=== PATIENT | female | born 1985 | race Caucasian/White ===

== ENCOUNTER → 2019-12-24 16:49 | Outpatient (BNVA) | payer MEDICAID, SELFPAY | PROVIDERS: Visit Provider Nurse Practitioner Family | DX: F41.9 Anxiety disorder, unspecified (principal); F32.9 Major depressive disorder, single episode, unspecified; E10.9 Type 1 diabetes mellitus without complications; E55.9 Vitamin D deficiency, unspecified; E78.2 Mixed hyperlipidemia | CPT/HCPCS: 80053; 80061; 81001; 82306; 83036; 84443; 85025 ==

== ENCOUNTER → 2020-05-08 11:07 | Outpatient (BNVA) | payer MEDICAID, SELFPAY | PROVIDERS: Visit Provider Nurse Practitioner Family | DX: E10.9 Type 1 diabetes mellitus without complications (principal); F41.9 Anxiety disorder, unspecified; F32.9 Major depressive disorder, single episode, unspecified; E55.9 Vitamin D deficiency, unspecified; Z96.41 Presence of insulin pump (external) (internal) | CPT/HCPCS: 80053; 81003; 83036; 85025 ==

== ENCOUNTER 2020-06-10 15:51 | Outpatient (CLI) | payer MEDICAID, SELFPAY ==
[2020-06-10 16:53] LABS: Glucose 233 mg/dL (65-115)
[2020-06-11 10:43] LABS: C-Peptide <0.10 ng/mL (0.80-3.85)
== END 2020-06-10 15:52 | disposition home or self-care (01) ==
PROVIDERS: Visit Provider Internal Medicine
DX: E10.319 Type 1 diabetes mellitus with unspecified diabetic retinopathy without macular edema (principal); E10.40 Type 1 diabetes mellitus with diabetic neuropathy, unspecified; E16.0 Drug-induced hypoglycemia without coma; T38.3X5A Adverse effect of insulin and oral hypoglycemic [antidiabetic] drugs, initial encounter
CPT/HCPCS: 36415; 82947; 84681; 99204

== ENCOUNTER → 2020-10-22 16:29 | Outpatient (BNVA) | payer MEDICAID, SELFPAY | PROVIDERS: PCP Nurse Practitioner Family; Visit Provider Nurse Practitioner Family | DX: E10.9 Type 1 diabetes mellitus without complications (principal); R53.83 Other fatigue; E55.9 Vitamin D deficiency, unspecified; E78.2 Mixed hyperlipidemia | CPT/HCPCS: 80053; 80061; 81003; 82306; 83036; 84439; 84443; 85007; 85027 ==

== ENCOUNTER → 2021-03-24 11:00 | Outpatient (BNVA) | payer MEDICAID, SELFPAY | PROVIDERS: PCP Nurse Practitioner Family; Visit Provider Nurse Practitioner Family | DX: K04.7 Periapical abscess without sinus (principal); E10.9 Type 1 diabetes mellitus without complications; B37.9 Candidiasis, unspecified | CPT/HCPCS: 80053; 83036; 84443; 85025 ==

== ENCOUNTER → 2021-04-29 11:54 | Outpatient (BNVA) | payer MEDICAID, SELFPAY | PROVIDERS: PCP Nurse Practitioner Family; Visit Provider Nurse Practitioner Family | DX: R79.89 Other specified abnormal findings of blood chemistry (principal); E16.0 Drug-induced hypoglycemia without coma; T38.3X5A Adverse effect of insulin and oral hypoglycemic [antidiabetic] drugs, initial encounter | CPT/HCPCS: 84439; 84443; 84481; 86376 ==

== ENCOUNTER → 2021-05-22 08:11 | Outpatient (BNVA) | payer MEDICAID, SELFPAY | PROVIDERS: PCP Nurse Practitioner Family; Visit Provider Internal Medicine | DX: E10.40 Type 1 diabetes mellitus with diabetic neuropathy, unspecified (principal); E10.319 Type 1 diabetes mellitus with unspecified diabetic retinopathy without macular edema; E16.0 Drug-induced hypoglycemia without coma; T38.3X5A Adverse effect of insulin and oral hypoglycemic [antidiabetic] drugs, initial encounter; R53.83 Other fatigue; E03.8 Other specified hypothyroidism; Z79.4 Long term (current) use of insulin; F17.200 Nicotine dependence, unspecified, uncomplicated | CPT/HCPCS: 99214 ==

== ENCOUNTER → 2021-06-05 08:46 | Outpatient (BNVA) | payer BC, MEDICAID, SELFPAY | PROVIDERS: PCP Nurse Practitioner Family; Visit Provider Internal Medicine | DX: E10.40 Type 1 diabetes mellitus with diabetic neuropathy, unspecified (principal); E10.319 Type 1 diabetes mellitus with unspecified diabetic retinopathy without macular edema; E03.8 Other specified hypothyroidism; E16.0 Drug-induced hypoglycemia without coma; T38.3X5A Adverse effect of insulin and oral hypoglycemic [antidiabetic] drugs, initial encounter; R53.83 Other fatigue; F17.200 Nicotine dependence, unspecified, uncomplicated | CPT/HCPCS: 99214 ==

== ENCOUNTER → 2021-07-29 10:37 | Outpatient (BNVA) | payer BC, MEDICAID, SELFPAY | PROVIDERS: PCP Nurse Practitioner Family; Visit Provider Internal Medicine | DX: E10.40 Type 1 diabetes mellitus with diabetic neuropathy, unspecified (principal); E10.319 Type 1 diabetes mellitus with unspecified diabetic retinopathy without macular edema; E16.0 Drug-induced hypoglycemia without coma; T38.3X5A Adverse effect of insulin and oral hypoglycemic [antidiabetic] drugs, initial encounter; R53.83 Other fatigue; E03.8 Other specified hypothyroidism; E55.9 Vitamin D deficiency, unspecified; E78.2 Mixed hyperlipidemia | CPT/HCPCS: 80061; 83036; 84439; 84443; 99215 ==

== ENCOUNTER → 2021-09-08 11:03 | Outpatient (BNVA) | payer BC, MEDICAID, SELFPAY | PROVIDERS: PCP Nurse Practitioner Family; Visit Provider Internal Medicine | DX: E10.40 Type 1 diabetes mellitus with diabetic neuropathy, unspecified (principal); E10.319 Type 1 diabetes mellitus with unspecified diabetic retinopathy without macular edema; E16.0 Drug-induced hypoglycemia without coma; T38.3X5A Adverse effect of insulin and oral hypoglycemic [antidiabetic] drugs, initial encounter; R53.83 Other fatigue; E03.8 Other specified hypothyroidism; E55.9 Vitamin D deficiency, unspecified; E78.2 Mixed hyperlipidemia; F17.200 Nicotine dependence, unspecified, uncomplicated; Z79.4 Long term (current) use of insulin | CPT/HCPCS: 99214 ==

== ENCOUNTER → 2021-11-19 14:01 | Outpatient (BNVA) | payer BC, MEDICAID, SELFPAY | PROVIDERS: PCP Nurse Practitioner Family; Visit Provider Internal Medicine | DX: E10.40 Type 1 diabetes mellitus with diabetic neuropathy, unspecified (principal); E10.319 Type 1 diabetes mellitus with unspecified diabetic retinopathy without macular edema; E10.649 Type 1 diabetes mellitus with hypoglycemia without coma; E03.8 Other specified hypothyroidism; R53.83 Other fatigue; E16.0 Drug-induced hypoglycemia without coma; T38.3X5A Adverse effect of insulin and oral hypoglycemic [antidiabetic] drugs, initial encounter; E78.2 Mixed hyperlipidemia; E55.9 Vitamin D deficiency, unspecified; F17.200 Nicotine dependence, unspecified, uncomplicated; Z79.4 Long term (current) use of insulin | CPT/HCPCS: 99214 ==

== ENCOUNTER → 2022-01-05 07:54 | Outpatient (BNVA) | payer BC, MEDICAID, SELFPAY | PROVIDERS: PCP Nurse Practitioner Family; Visit Provider Internal Medicine | DX: E10.40 Type 1 diabetes mellitus with diabetic neuropathy, unspecified (principal); E10.319 Type 1 diabetes mellitus with unspecified diabetic retinopathy without macular edema; E10.649 Type 1 diabetes mellitus with hypoglycemia without coma; E16.0 Drug-induced hypoglycemia without coma; T38.3X5A Adverse effect of insulin and oral hypoglycemic [antidiabetic] drugs, initial encounter; R53.83 Other fatigue; E03.8 Other specified hypothyroidism; E55.9 Vitamin D deficiency, unspecified; E78.2 Mixed hyperlipidemia; F17.200 Nicotine dependence, unspecified, uncomplicated; Z79.4 Long term (current) use of insulin | CPT/HCPCS: 99214 ==

== ENCOUNTER → 2022-01-21 14:29 | Outpatient (BNVA) | payer BC, MEDICAID, SELFPAY | PROVIDERS: PCP Nurse Practitioner Family; Visit Provider Internal Medicine | DX: E03.8 Other specified hypothyroidism (principal); E11.319 Type 2 diabetes mellitus with unspecified diabetic retinopathy without macular edema; E16.0 Drug-induced hypoglycemia without coma; E55.9 Vitamin D deficiency, unspecified; E78.2 Mixed hyperlipidemia; R53.83 Other fatigue; T38.3X5A Adverse effect of insulin and oral hypoglycemic [antidiabetic] drugs, initial encounter | CPT/HCPCS: 80053; 80061; 82044; 83036; 84439; 84443; 99214 ==

== ENCOUNTER → 2022-03-01 08:19 | Outpatient (BNVA) | payer BC, MEDICAID, SELFPAY | PROVIDERS: PCP Nurse Practitioner Family; Visit Provider Nurse Practitioner Family | DX: R10.11 Right upper quadrant pain (principal) | CPT/HCPCS: 80053; 85025 ==

== ENCOUNTER 2022-03-30 08:19 | Outpatient (CLI) | payer BC, MEDICAID, SELFPAY ==
--- NOTE | 2022-03-30 08:30 | US_ITS ---
WS: [id number] RIGHT UPPER QUADRANT ULTRASOUND HISTORY: R10.11 - Right upper quadrant pain COMPARISON: None available. Liver: 15.9 cm in length. Normal size liver. No bile duct dilatation or mass. Portal Vein: Normal hepatopetal flow with monophasic waveform. Gallbladder: Normally distended gallbladder with no stones or wall thickening. CBD: 0.4 cm Pancreas: Normal size and echogenicity. Right kidney: 11.1 cm in length. Normal size and echogenicity. No hydronephrosis or mass. Aorta and IVC: Unremarkable abdominal aorta and IVC. No ascites. US/US gall bladder [id number] IMPRESSION: Normal RIGHT upper quadrant ultrasound.
== END 2022-03-30 08:20 | disposition home or self-care (01) ==
LOC: RAD 08:20
PROVIDERS: PCP Nurse Practitioner Family; Visit Provider Nurse Practitioner Family
DX: R10.11 Right upper quadrant pain (principal)
CPT/HCPCS: 76705

== ENCOUNTER → 2023-02-10 10:33 | Outpatient (BNVA) | payer BC, MEDICAID, SELFPAY | PROVIDERS: PCP Nurse Practitioner Family; Visit Provider Internal Medicine | DX: E10.40 Type 1 diabetes mellitus with diabetic neuropathy, unspecified (principal); E11.319 Type 2 diabetes mellitus with unspecified diabetic retinopathy without macular edema; E16.0 Drug-induced hypoglycemia without coma; T38.3X5A Adverse effect of insulin and oral hypoglycemic [antidiabetic] drugs, initial encounter; R53.83 Other fatigue; E03.8 Other specified hypothyroidism; E55.9 Vitamin D deficiency, unspecified; E78.2 Mixed hyperlipidemia; R21 Rash and other nonspecific skin eruption | CPT/HCPCS: 36415; 80053; 80061; 82044; 83036; 84439; 84443 ==

== ENCOUNTER 2023-03-29 14:49 | Outpatient (CLI) | payer BC, MEDICAID, SELFPAY ==
[2023-03-29 16:22] LABS: Basophils # 0.1 10^3/uL (0.0-0.1); Basophils % 1.3 %; Eosinophils # 0.4 10^3/uL (0.0-0.8); Eosinophils % 6.2 %; Hematocrit 40.7 % (36-47); Lymphocytes # 2.3 10^3/uL (0.8-4.8); Lymphocytes % 33.4 %; Mean Corpuscular HGB Conc 33.7 g/dL (30-55); Mean Corpuscular Hemoglobin 31.1 pg (27-33); Mean Corpuscular Volume 92.5 fl (85-98); Mean Platelet Volume 10.8 fL (7.4-10.4); Monocytes # 0.5 10^3/uL (0.2-0.9); Monocytes % 7.4 %; Neutrophils # 3.49 10^3/uL (1.8-7.7); Neutrophils % 51.4 %; Nucleated Red Blood Cells % 0 %; Platelet Count 298 10^3/cmm (157-399); White Blood Count 6.79 10^3/uL (3.29-11.43)
[2023-03-29 17:05] LABS: Hepatitis A Antibody IgM Non-Reactive (Nonreactive); Hepatitis B Core AB, Total Non-Reactive (Nonreactive); Hepatitis B Surface AB 254.8 (11.5-1000); Hepatitis B Surface Antigen Non-Reactive (Nonreactive); Hepatitis C Virus Antibody Non-Reactive (Nonreactive)
[2023-03-29 20:38] LABS: Blood Urea Nitrogen 11 mg/dL (6-20); Calcium 8.5 mg/dL (8.5-10.5); Carbon Dioxide 24 mmol/L (22-29); Chloride 102 mmol/L (98-107); Glomerular Filtration Rate 93.6 mL/min (90-130); Glucose 231 mg/dL (65-115); Osmolality Calculated 295 mOsm/kg (285-295); Sodium 139 mmol/L (136-145)
[2023-03-29 22:27] LABS: HIV 1 & 2 Antibody Non-Reactive (Non-Reactiv); HIV 1 & 2 Antigen Non-Reactive (Non-Reactiv)
[2023-03-31 12:58] LABS: Quantiferon Mitogen 6.92 IU/mL; Quantiferon Nil 0.01 IU/mL; Quantiferon TB Gold NEGATIVE (NEGATIVE)
== END 2023-03-29 14:50 | disposition home or self-care (01) ==
LOC: LAB 14:55
PROVIDERS: PCP Nurse Practitioner Family; Visit Provider Dermatology
DX: L40.0 Psoriasis vulgaris (principal)
CPT/HCPCS: 36415; 80048; 85025; 86480; 86705; 86706; 86709; 86803; 87340; 87806

== ENCOUNTER → 2023-04-14 11:17 | Outpatient (BNVA) | payer BC, MEDICAID, SELFPAY | PROVIDERS: PCP Nurse Practitioner Family; Visit Provider Nurse Practitioner Family | DX: S89.91XA Unspecified injury of right lower leg, initial encounter (principal); X58.XXXA Exposure to other specified factors, initial encounter | CPT/HCPCS: 73562 ==

== ENCOUNTER 2023-05-24 15:12 | Outpatient (CLI) | payer BC, MEDICAID, SELFPAY ==
--- NOTE | 2023-05-24 15:15 | MR_ITS ---
WS: [id number] MRI RIGHT KNEE NONCONTRAST TECHNIQUE: Axial PD, coronal PD fat sat, coronal PD, sagittal PD, and sagittal PD fat-sat images parula stephanied. CLINICAL INFORMATION: S86.911A - Strain of unspecified muscle(s) and tendon(s) ... COMPARISON: None. FINDINGS: Distal quadriceps and patella tendons are intact. Mild chondromalacia patella. Medial and lateral pat ellar retinaculum are intact. High-grade complete tear of the ACL. No normal fibers visualized. This has a chronic appearance. Increased signal abnormality in the PCL with T1 hyperintensity likely due t o mucoid degeneration. Diffuse thickening of the PCL. Moderate tricompartmental arthritis advanced for a patient this age. Small suprapatellar effusion. Ev idence of prior postoperative changes partial lateral meniscectomy. Chronic intrasubstance signal abn ormality involving the medial meniscus. Medial and lateral collateral ligaments appear intact. Poplit eus appears intact. Subchondral cystic changes involving the tibial spines. IMPRESSION: 1. Chronic appearing high-grade tear of the ACL. No normal fibers visualized. Evidence of prior pres umed ACL repair. 2. Diffuse thickening with mucoid degeneration involving the PCL which appears intact. 3. Evidence of prior partial lateral meniscectomy. Medial meniscus appears intact with chronic thinn ing. 4. Moderate tricompartmental arthritis advanced for patient this age. 5. Grade II chondromalacia patella. 6. Medial and lateral collateral ligaments appear intact. 7. Evidence of prior proximal MCL tear with Dax-Stieda Outbridge grading: grade III: partial-thickness cartilage loss with focal ulceration
== END 2023-05-24 15:13 | disposition home or self-care (01) ==
LOC: RAD 15:12
PROVIDERS: PCP Nurse Practitioner Family; Visit Provider Nurse Practitioner
DX: S86.911A Strain of unspecified muscle(s) and tendon(s) at lower leg level, right leg, initial encounter (principal); S83.203A Other tear of unspecified meniscus, current injury, right knee, initial encounter; X58.XXXA Exposure to other specified factors, initial encounter; M94.261 Chondromalacia, right knee; M13.861 Other specified arthritis, right knee; Z98.890 Other specified postprocedural states
CPT/HCPCS: 73721

== ENCOUNTER → 2024-03-15 15:14 | Outpatient (BNVA) | payer BC, MEDICAID, SELFPAY | PROVIDERS: PCP Nurse Practitioner Family; Visit Provider Physician Assistant | DX: M23.91 Unspecified internal derangement of right knee (principal); M17.11 Unilateral primary osteoarthritis, right knee; S83.511A Sprain of anterior cruciate ligament of right knee, initial encounter; X58.XXXA Exposure to other specified factors, initial encounter | CPT/HCPCS: 73560; 73565 ==

== ENCOUNTER → 2024-04-10 15:21 | Outpatient (BNVA) | payer BC, MEDICAID, SELFPAY | PROVIDERS: PCP Nurse Practitioner Family; Visit Provider Nurse Practitioner Family | DX: N92.0 Excessive and frequent menstruation with regular cycle (principal); E78.2 Mixed hyperlipidemia; E10.9 Type 1 diabetes mellitus without complications; E55.9 Vitamin D deficiency, unspecified | CPT/HCPCS: 80053; 80061; 81003; 81025; 82306; 83036; 84443; 85025; 87400 ==

== ENCOUNTER → 2024-05-02 16:31 | Outpatient (BNVA) | payer BC, MEDICAID, SELFPAY | PROVIDERS: PCP Nurse Practitioner Family; Visit Provider Nurse Practitioner Women's Health | DX: Z12.4 Encounter for screening for malignant neoplasm of cervix (principal) | CPT/HCPCS: 87624 ==

== ENCOUNTER 2024-05-04 15:02 | Outpatient (CLI) | payer BC, MEDICAID, SELFPAY ==
--- NOTE | 2024-05-04 15:15 | US_ITS ---
WS: [id number] Pelvic ultrasound, 05/04/2024 Clinical Data: N92.1 - Excessive and frequent menstruation with irregula... Comparison: None. Findings: The uterus measures 8.2 cm x 5.7 cm x 5.0 cm. The uterus shows mixed echotexture The endometrium is 0.7 cm. No intrauterine or abnormal intrauterine mass is seen. The left ovary was not imaged The right ovary measures 4.5 cm x 2.6 cm x 2.9 cm with no cysts or masses. There is no fluid in the cul-de-sac. US/US pelv w/transvag [id number] Impression: Negative pelvic ultrasound with notation left ovary was not imaged.
== END 2024-05-04 15:03 | disposition home or self-care (01) ==
LOC: RAD 15:03
PROVIDERS: PCP Nurse Practitioner Family; Visit Provider Nurse Practitioner Family
DX: N92.1 Excessive and frequent menstruation with irregular cycle (principal)
CPT/HCPCS: 76830; 76856

== ENCOUNTER → 2024-07-05 09:26 | Outpatient (BNVA) | payer BC, MEDICAID, SELFPAY | PROVIDERS: PCP Nurse Practitioner Family; Visit Provider Obstetrics & Gynecology | DX: R87.629 Unspecified abnormal cytological findings in specimens from vagina (principal) | CPT/HCPCS: 81025 ==

== ENCOUNTER → 2024-07-19 13:57 | Outpatient (BNVA) | payer BC, MEDICAID, SELFPAY | PROVIDERS: PCP Nurse Practitioner Family; Visit Provider Internal Medicine | DX: E10.40 Type 1 diabetes mellitus with diabetic neuropathy, unspecified (principal); E16.0 Drug-induced hypoglycemia without coma; T38.3X5A Adverse effect of insulin and oral hypoglycemic [antidiabetic] drugs, initial encounter; E03.8 Other specified hypothyroidism; E55.9 Vitamin D deficiency, unspecified; E78.2 Mixed hyperlipidemia; E10.9 Type 1 diabetes mellitus without complications; R53.83 Other fatigue; R21 Rash and other nonspecific skin eruption; X58.XXXA Exposure to other specified factors, initial encounter | CPT/HCPCS: 36415; 80053; 80061; 82044; 82306; 83036; 84439; 84443 ==

== ENCOUNTER → 2024-07-26 13:19 | Outpatient (BNVA) | payer BC, MEDICAID, SELFPAY | PROVIDERS: PCP Nurse Practitioner Family; Visit Provider Obstetrics & Gynecology | DX: R87.629 Unspecified abnormal cytological findings in specimens from vagina (principal) | CPT/HCPCS: 81025; 88305 ==

== ENCOUNTER → 2024-08-31 10:30 | Outpatient (BNVA) | payer BC, MEDICAID, SELFPAY | PROVIDERS: PCP Nurse Practitioner Family; Visit Provider Obstetrics & Gynecology | DX: R87.613 High grade squamous intraepithelial lesion on cytologic smear of cervix (HGSIL) (principal) | CPT/HCPCS: 88305; 88342 ==

== ENCOUNTER 2024-10-16 08:27 | Day surgery (SDC) | payer BC, MEDICAID, SELFPAY ==
[2024-10-16] VITALS (10 sets, daily range): BP systolic 87–116; BP diastolic 58–75; PULSE 79–105; RESP 8–25; TEMP 36.1–36.5; O2SAT 92–100; BMI 30.9
--- NOTE | 2024-10-16 06:03 | W.PM.OPSFHP ---
Same Day Surgery H&P Indication for Procedure/HPI DATE OF PROCEDURE: October 16, 2024 CHIEF COMPLAINT/INDICATIONFOR SURGICAL PROCEDURE: cervical dysplasia PREOP DIAGNOSIS: cervical dysplasia PLANNED PROCEDURE: Operation Date: 10/16/24 10:05 Proposed Procedures p Loop Electrosurgical Excision Procedure 06145(Not Applicable) - West Nix MD Medications/Allergies* Home Medications ?Medication ?Instructions ?Recorded ?Confirmed ?Type cetirizine 10 mg tablet 10 mg PO DAILY 10/15/24 10/15/24 History ergocalciferol (vitamin D2) 1,250 1,250 mcg PO .WEEKLY 10/15/24 10/15/24 History mcg (50,000 unit) capsule insulin lispro 100 unit/mL 36 unit SUBCUT DIRECTED 10/15/24 10/15/24 History subcutaneous solution (Humalog U-100 Insulin) paroxetine HCl 30 mg tablet 30 mg PO DAILY 10/15/24 10/15/24 History Allergies/Adverse Reactions Allergy/AdvReac Type Severity Reaction Status Date / Time diphenhydramine (From Allergy unknown Verified 10/15/24 10:36 Benadryl) Pertinent History/Comorbid Conditions* Medical History (Updated 06/26/24 @ 18:36 by Douglas Lizarraga MD) No pertinent past medical history NegDX: Htn,DVT/PE PCP: Gross Hypothyroid Menometrorrhagia Nausea Right knee pain Arthritis of knee ACL tear Right knee injury Dermatitis Back pain Fatigue Environmental and seasonal allergies Insulin pump status Mixed hyperlipidemia Type 1 diabetes Anxiety and depression Vitamin D deficiency Surgical History (Updated 05/02/24 @ 15:00 by Anayeli Dumont APN, WHTYRELL) History of laparoscopy (~2008) left oophorectomy for ovarian cyst-- benign; performed by [facility] H/O bilateral salpingectomy (~2016) [place] Hx of right knee surgery History of ankle surgery Status post delivery 2009 2016-- has salpingectomy at same time Family History (Updated 12/24/19 @ 13:23 by Bushra Valdez LPN) Diabetes CAD (coronary artery disease) Hyperlipidemia Thyroid disease Social History Smoking and tobacco/nicotine status: current every day tobacco/nicotine user Alcohol intake: never Substance/Drug Use: former Pertinent Exam Findings alert, oriented x 3, clear to auscultation bilaterally and regular rate & rhythm Recommendations Surgery/Procedure today Coding Level of Care Code Acute Code for Chg Fwd
[2024-10-16 08:57] LABS: OR HCG Qualitative Urine Negative (Negative)
[2024-10-16 09:02] LABS: Glucose Point of Care 370 mg/dL (70-110)
[2024-10-16] MEDS: sodium chloride 0.9% 1,000 ML 30 ML IV (09:02)
[2024-10-16 09:08] LABS: Glucose Point of Care 339 mg/dL (70-110)
--- NOTE | 2024-10-16 09:21 | ANES.PREANE2 ---
Pre-Anesthetic Assessment Height/Weight: Height 1.63 m Weight 81.647 kg Temp Pulse Resp BP Pulse Ox O2 Del Method 97 F L 79 18 114/68 97 Room Air 10/16/24 08:48 10/16/24 08:48 10/16/24 08:48 10/16/24 08:48 10/16/24 08:48 10/16/24 08:48 Preop Diagnosis: cervical dysplasia Operation Date: 10/16/24 10:05 Proposed Procedures p Loop Electrosurgical Excision Procedure 53841(Not Applicable) - West Nix MD Familial anesthetic complications: None Was Beta Caroline taken within 24 hours: N/A Was Clonidine taken within 24 hours: N/A Last intake: Intake Last Liquid Date 10/15/24 Last Liquid Time 23:25 Last Solid Date 10/15/24 Last Solid Time 22:30 Social Tobacco and No alcohol Exam alert, oriented x 3, clear to auscultation bilaterally and regular rate & rhythm Airway Mallampati: Class II Dentition: other (poor dentition, multiple missing teeth, decayed) Metabolic Diabetes Mellitus and Thyroid Disease Anesthetic Plan ASA status: 3 Anesthesia: General Risk of > 500 ml blood loss (7ml/kg in children): No Medications/Allergies Home Medications ?Medication ?Instructions ?Recorded ?Confirmed ?Last Taken ?Type subcutaneous insulin pump #1 ea 05/08/20 09/24/24 Unknown Rx glucagon 0.5 mg/0.1 mL 1 mg (0.2 mL) SUBCUT Q20M PRN 10/27/20 10/15/24 Unknown Rx subcutaneous syringe hypoglycemia #0.2 mL infusion set for insulin pump #5 ea 08/31/21 09/24/24 Unknown Rx blood-glucose meter,continuous #1 ea 05/03/22 09/24/24 Unknown Rx insulin pump cart,cont inf,BT #30 ea 01/31/23 09/24/24 Unknown Rx (Omnipod Dash Pods (Gen 4) subcutaneous cartridge) Right Knee ACL Brace #1 ea 03/15/24 09/24/24 Unknown Rx blood-glucose transmitter (Dexcom #1 ea 07/03/24 09/24/24 Unknown Rx G6 Transmitter device) blood-glucose sensor (Dexcom G6 #9 ea 08/14/24 09/24/24 Unknown Rx Sensor device) insulin pump cart,automated,BT #90 ea 08/14/24 09/24/24 Unknown Rx levothyroxine 25 mcg tablet 25 mcg PO DAILY 1 month #36 tabs 08/14/24 10/16/24 10/16/24 06:00 Rx cetirizine 10 mg tablet 10 mg PO DAILY 10/15/24 10/15/24 Unknown History ergocalciferol (vitamin D2) 1,250 1,250 mcg PO .WEEKLY 10/15/24 10/15/24 10/13/24 History mcg (50,000 unit) capsule insulin lispro 100 unit/mL 36 unit SUBCUT DIRECTED 10/15/24 10/15/24 10/15/24 History subcutaneous solution (Humalog U-100 Insulin) paroxetine HCl 30 mg tablet 30 mg PO DAILY 10/15/24 10/15/24 10/15/24 History Allergies Allergy/AdvReac Type Severity Reaction Status Date / Time diphenhydramine (From Allergy unknown Verified 10/16/24 08:46 Benadryl) Current Medications Generic Name Dose Route Start Last Admin Trade Name Freq PRN Reason Stop Dose Admin Sodium Chloride 1,000 mls @ 30 mls/hr 10/16/24 08:45 10/16/24 09:02 Sodium Chloride 0.9% IV 10/17/24 08:44 30 mls/hr .Q24H RADHA Administration PFSH Anesthesia Medical History No pertinent past medical history NegDX: Htn,DVT/PE PCP: Gross Hypothyroid Menometrorrhagia Nausea Right knee pain Arthritis of knee ACL tear Right knee injury Dermatitis Back pain Fatigue Environmental and seasonal allergies Insulin pump status Mixed hyperlipidemia Type 1 diabetes Anxiety and depression Vitamin D deficiency Surgical History History of laparoscopy (~2008) left oophorectomy for ovarian cyst-- benign; performed by [facility] H/O bilateral salpingectomy (~2016) [facility] of right knee surgery History of ankle surgery Status post delivery 2009 2016-- has salpingectomy at same time Family History Other CAD (coronary artery disease) Diabetes Hyperlipidemia Thyroid disease Social History Smoking and tobacco/nicotine status: current every day tobacco/nicotine user Alcohol intake: never Substance/Drug Use: former Female Reproductive History Date of last menstrual period: 10/14/24 Data Anesthesia Cardiac Studies: No Data to Display
[2024-10-16 09:52] LABS: Glucose Point of Care 326 mg/dL (70-110)
--- NOTE | 2024-10-16 10:45 | PM.OP ---
Operative Report Date of procedure: October 16, 2024 Pre-op diagnosis: cervical TREMAYNE II Post-op diagnosis: same Procedure done: Electrosurgical loop excision of the cervix Implants: none Specimens removed/disposition: cervical tissue Surgeon: West Nix MD Anesthesia: MAC Estimated blood loss (mL): 5 Complications: none Condition: stable Disposition: PACU Brief History: 38 y.o. with colposcopically-directed cervical biopsy showing cervical TREMAYNE II Procedure: Informed consent signed The patient was taken to the operating room and placed supine on the table. MAC anesthesia was induced. The patient was placed in dorsolithotomy position. The patient was prepped and draped in the usual sterile fashion. A bivalve speculum was placed in the vagina. The anterior lip of the cervix was grasped with a single toothed tenaculum. The cervix was then infiltrated at the cervicovaginal junction with 20 U of vasopressin to decrease bleeding. Electrosurgical loop excision of the cervix was done to a depth of approximately 5 mm. Excellent hemostasis was noted. All instruments were then removed. The patient was placed supine, awakened, and taken to the recovery room. Postoperative condition: stable EBL: less than 5 cc Complications: none Sponge and instrument counts were correct x two
--- NOTE | 2024-10-16 11:04 | W.PM.OPSUD ---
Surgery/Procedure H&P Update DATE OF PROCEDURE: October 16, 2024 DATE H&P PERFORMED: 09/24/24 H&P UPDATE INFORMATION: I have reviewed H&P completed within last 30 days, I have examined patient prior to procedure and No changes to prior documentation PREOP DIAGNOSIS: cervical dysplasia PLANNED PROCEDURE: Operation Date: 10/16/24 10:05 Proposed Procedures p Loop Electrosurgical Excision Procedure [id number](Not Applicable) - West Nix MD
[2024-10-16] MEDS: vasopressin 20 unit/mL INJ INJECTION (11:49)
[2024-10-16 12:25] LABS: Glucose Point of Care 242 mg/dL (70-110)
--- NOTE | 2024-10-16 13:15 | ANE.PACU2 ---
Inpatient post-anesthesia follow up: Airway intact: Yes Vital signs: Temperature 97.2 F Pulse Rate 85 Respiratory Rate 16 Blood Pressure 98/58 Pulse Oximetry 96 Oxygen Delivery Me thod Room Air Oxygen Flow Rate Fraction of Inspir ed Oxygen Hydration adequate: Yes Nausea and vomiting: Yes Pain level: 1 Mental status: Baseline
== END 2024-10-16 13:14 | disposition home or self-care (01) ==
PROVIDERS: PCP Nurse Practitioner Family; Visit Provider Obstetrics & Gynecology
PROC: 0UBC7ZZ Excision of Cervix, Via Natural or Artificial Opening (ICD-10-PCS; CPT 57522; principal; 2024-10-16 09:55)
DX: N87.1 Moderate cervical dysplasia (principal); E03.9 Hypothyroidism, unspecified; E10.9 Type 1 diabetes mellitus without complications; E78.2 Mixed hyperlipidemia; Z79.899 Other long term (current) drug therapy; Z79.4 Long term (current) use of insulin; Z88.8 Allergy status to other drugs, medicaments and biological substances; F17.200 Nicotine dependence, unspecified, uncomplicated
CPT/HCPCS: 57522; 36416; 81025; 82962; 88307; A4216; J0131; J1100; J1171; J1885; J2250; J2405; J2704; J3010; J3490; J7030; J9999

== ENCOUNTER → 2024-10-22 12:52 | Outpatient (BNVA) | payer BC, MEDICAID, SELFPAY | PROVIDERS: PCP Nurse Practitioner Family; Visit Provider Internal Medicine | DX: R21 Rash and other nonspecific skin eruption (principal); E78.2 Mixed hyperlipidemia; E55.9 Vitamin D deficiency, unspecified; E03.8 Other specified hypothyroidism; R53.83 Other fatigue; E16.0 Drug-induced hypoglycemia without coma; T38.3X5A Adverse effect of insulin and oral hypoglycemic [antidiabetic] drugs, initial encounter; E10.40 Type 1 diabetes mellitus with diabetic neuropathy, unspecified; E11.319 Type 2 diabetes mellitus with unspecified diabetic retinopathy without macular edema | CPT/HCPCS: 36415; 80053; 80061; 82044; 83036; 84439; 84443 ==

== ENCOUNTER → 2024-12-05 11:02 | Outpatient (BNVA) | payer BC, MEDICAID, SELFPAY | PROVIDERS: PCP Nurse Practitioner Family; Visit Provider Psychiatry & Neurology Neurology | DX: G62.9 Polyneuropathy, unspecified (principal); E56.9 Vitamin deficiency, unspecified | CPT/HCPCS: 36415; 82306; 82607; 82746; 83921; 86780 ==

== ENCOUNTER → 2025-01-22 14:58 | Outpatient (BNVA) | payer BC, MEDICAID, SELFPAY | PROVIDERS: PCP Nurse Practitioner Family; Visit Provider Nurse Practitioner Women's Health | DX: N34.0 Urethral abscess (principal) | CPT/HCPCS: 87070; 87075; 87205; 87491; 87591; 87661 ==

== ENCOUNTER → 2025-02-13 08:18 | Outpatient (BNVA) | payer BC, MEDICAID, SELFPAY | PROVIDERS: PCP Nurse Practitioner Family; Visit Provider Student in an Organized Health Care Education/Training Program | DX: G56.03 Carpal tunnel syndrome, bilateral upper limbs (principal) | CPT/HCPCS: 73130 ==

== ENCOUNTER 2025-03-01 09:14 | Day surgery (SDC) | payer BC, MEDICAID, SELFPAY ==
[2025-03-01] VITALS (7 sets, daily range): BP systolic 101–136; BP diastolic 48–75; PULSE 51–65; RESP 14–18; TEMP 36.4–36.7; O2SAT 96–98; BMI 31.7
[2025-03-01] MEDS: acetaminophen 1,000 MG/100 ML PIGGYBACK 400 MG IV (08:35)
--- NOTE | 2025-03-01 08:41 | ANES.PREANE2 ---
Pre-Anesthetic Assessment Height/Weight: Height 1.63 m Weight 83.915 kg Temp Pulse Resp BP Pulse Ox O2 Del Method 97.6 F 63 18 110/69 98 Room Air 03/01/25 08:22 03/01/25 08:22 03/01/25 08:22 03/01/25 08:22 03/01/25 08:22 03/01/25 08:22 Operation Date: 03/01/25 09:30 Proposed Procedures p Carpal Tunnel Release(Left) - Garland Sierra, DO Familial anesthetic complications: None Was Beta Caroline taken within 24 hours: N/A Was Clonidine taken within 24 hours: N/A Last intake: Intake Last Liquid Date 02/28/25 Last Liquid Time 22:00 Last Solid Date 02/28/25 Last Solid Time 20:30 Social No alcohol and No tobacco Exam alert, oriented x 3, clear to auscultation bilaterally and regular rate & rhythm Airway Mallampati: Class III Dentition: other ( I got all kinds of bad teeth ) Metabolic Diabetes Mellitus, Hyperlipidemia and Thyroid Disease Anesthetic Plan ASA status: 3 Anesthesia: MAC Risk of > 500 ml blood loss (7ml/kg in children): No Medications/Allergies Home Medications ?Medication ?Instructions ?Recorded ?Confirmed ?Last Taken ?Type glucagon 0.5 mg/0.1 mL 1 mg (0.2 mL) SUBCUT Q20M PRN 10/27/20 03/01/25 Unknown Rx subcutaneous syringe hypoglycemia #0.2 mL blood-glucose,dredge pipeman,cont #1 ea 05/03/22 03/01/25 Unknown Rx insulin pump cart,automated,BT #90 ea 08/14/24 03/01/25 Unknown Rx cetirizine 10 mg tablet 10 mg PO DAILY 10/15/24 03/01/25 Unknown History ergocalciferol (vitamin D2) 1,250 1,250 mcg PO .WEEKLY 10/15/24 03/01/25 02/25/25 History mcg (50,000 unit) capsule blood-glucose,dredge pipeman,cont #1 ea 10/24/24 03/01/25 Unknown Rx (Dexcom G7 Design Engineering Technician) levothyroxine 50 mcg tablet 50 mcg PO DAILY #30 tabs 11/01/24 03/01/25 02/28/25 Rx (Synthroid) insulin pump cart,auto,BT,G6/7 #5 ea 11/09/24 03/01/25 Unknown Rx (Omnipod 5 G6-G7 Pods (Gen 5) subcutaneous cartridge) insulin pump cartridge,auto #1 ea 11/09/24 03/01/25 Unknown Rx dose,BT,G6/G7 with controller subcutaneous (Omnipod 5 G6-G7 Intro Kit(Gen 5) subcutaneous cartridge and controller) insulin lispro 100 unit/mL See Rx Instructions .Route 11/15/24 03/01/25 02/28/25 Rx subcutaneous solution (Humalog .COMPLEX #20 mL U-100 Insulin) paroxetine HCl 30 mg tablet 30 mg PO DAILY #30 tabs 12/03/24 03/01/25 02/28/25 Rx blood-glucose sensor (Dexcom G7 #9 ea 01/28/25 03/01/25 Unknown Rx Sensor device) Allergies Allergy/AdvReac Type Severity Reaction Status Date / Time diphenhydramine (From Allergy unknown Verified 03/01/25 08:20 Benadryl) Current Medications Generic Name Dose Route Start Last Admin Trade Name Freq PRN Reason Stop Dose Admin Sodium Chloride 1,000 mls @ 30 mls/hr 03/01/25 08:15 03/01/25 08:35 Sodium Chloride 0.9% IV 03/02/25 08:14 30 mls/hr .Q24H RADHA Administration PFSH Anesthesia Medical History Dental infection No pertinent past medical history NegDX: Htn,DVT/PE PCP: Gross Hypothyroid Menometrorrhagia Nausea Right knee pain Arthritis of knee ACL tear Right knee injury Dermatitis Back pain Fatigue Environmental and seasonal allergies Insulin pump status Mixed hyperlipidemia Type 1 diabetes Anxiety and depression Vitamin D deficiency Surgical History History of laparoscopy (~2008) left oophorectomy for ovarian cyst-- benign; performed by [facility] [place] H/O bilateral salpingectomy (~2016) [facility] of right knee surgery History of ankle surgery Status post delivery 2009 2016-- has salpingectomy at same time Family History Other CAD (coronary artery disease) Diabetes Hyperlipidemia Thyroid disease Social History Smoking and tobacco/nicotine status: current every day tobacco/nicotine user Alcohol intake: never Substance/Drug Use: former
--- NOTE | 2025-03-01 09:01 | W.PM.OPSUD ---
Surgery/Procedure H&P Update DATE OF PROCEDURE: March 01, 2025 DATE H&P PERFORMED: 02/13/25 H&P UPDATE INFORMATION: I have reviewed H&P completed within last 30 days, I have examined patient prior to procedure and No changes to prior documentation PREOP DIAGNOSIS: Left carpal tunnel syndrome PRIMARY INDICATION FOR PROCEDURE: Left carpal tunnel syndrome PLANNED PROCEDURE: Operation Date: 03/01/25 09:30 Proposed Procedures p Carpal Tunnel Release(Left) - Garland Edwards DO
[2025-03-01] MEDS: ceFAZolin 2,000 MG in sodium chloride 0.9% (plus) 50 ML 100 MG IV (09:10)
[2025-03-01 09:18] LABS: OR HCG Qualitative Urine Negative (Negative)
[2025-03-01] MEDS: ROPivacaine 0.5% SDV 30 mL 150 MG INJECTION (09:30)
[2025-03-01] MEDS: lidocaine-epi 1% 20 mL INJ INJECTION (09:30)
--- NOTE | 2025-03-01 09:41 | P.BOP_ITS ---
Date of Procedure: 03/01/2025 Surgeon: Garland Edwards DO Drawing Instructor(s): None Procedure(s) performed: Left carpal tunnel release Findings of the procedure(s): Patient underwent procedure as planned without issues or complications taken recovery stable condition Estimated blood loss: 5 mL Specimen(s) removed: None Post-operative diagnosis: Left carpal tunnel syndrome
--- NOTE | 2025-03-01 09:42 | P.OP_ITS ---
Operative Report Date of procedure: March 01, 2025 Surgeon: Garland Edwards DO Procedure: Preop Diagnosis: Left Carpal Tunnel Syndrome Post-op diagnosis: Same Procedure done: 1. Left carpal tunnel release Surgeon: Garland Edwards DO Anesthesia: MAC (Local) Estimated blood loss: 5 mL Tourniquet time 6 minutes IV fluids: See anesthesia record Complications: None Findings: See operative report narrative Condition: stable Disposition: same day Brief History: Patient is a pleasant 39 year-old female with left carpal tunnel syndrome. Patient has been worked up in the outpatient setting findings and physical examination consistent with this. Patient nerve conduction studies consistent with carpal tunnel syndrome. We detailed out patient's risk benefits complication alternatives with surgical and nonsurgical treatment options. Through shared decision making, patient agrees to proceed with surgical intervention of the left carpal tunnel release . Patient understands and agrees with current plan. All questions answered. Patient elects to proceed with surgical intervention with carpal tunnel release. Procedure: Patient seen and evaluated in the preoperative holding area. Consent was reviewed and signed with patient. Correct extremity was marked. Patient was seen evaluated by the anesthesia department once cleared for surgery was brought back to the operative suite. [facility] was [facility] on [facility] in supine position all bony prominences were well-padded patient properly secured to the bed. Left upper extremity was then placed onto an armboard. A nonsterile tourniquet was applied to the left upper arm. Patient underwent anesthesia per the anesthesia department. Patient's left upper extremity was then prepped and draped in standard orthopedic fashion. Final timeout performed. Patient rece ived appropriate preoperative antibiotics. Under sterile aseptic technique patient received local anesthesia over the preplanned carpal tunnel incision site. Esmarch was used to exsanguinate the left upper extremity and tourniquet was insufflated to 250 mmHg. A standard mini open left carpal tunnel incision was made. Starting distally at Seo's cardinal line in line with the fourth ray extending proximally distal to the wrist crease centered over the carpal tunnel. Sharp scalpel incision was made through skin and subcutaneous tissue. Self-retaining retractor was placed and the palmar fascia was identified. This was then split longitudinally and direct visualization of the transverse carpal ligament was then made. I then utilizing scalpel feathered through the transverse carpal ligament until I entered the floor of the transverse carpal tunnel ligament into the carpal tunnel. Next I switched to dissection scissors and completed my release of the transverse carpal ligament distally with care to protect the recurrent motor branch. I completely released into the palmar fat and until no entrapment was noted distally. Care was made to protect the superficial palmar arch during my distal dissection. Next, nasal speculum placed proximally for retraction of soft tissue on top of the Transverse carpal ligament. Next the contents of the carpal tunnel where protected and and subsequently utilizing dissection scissors under loupe magnification completely released the transverse carpal ligament proximally into the antebrachial fascia. Care was made to protect the palmar cutaneous branch by keeping my scissors curved ulnarly. Once completely released, I then placed my [place] and had appropriate decompression of the carpal tunnel proximally as well as distally. I then inspected the contents of the carpal tunnel which showed an hourglass shape of the median nerve showing its compression. No masses were noted. Tendons appeared healthy. Wound was then thoroughly ir rigated. Tourniquet deflated. Hemostasis satisfactory with bipolar electrocautery. I then closed the incision with interrupted nylon stitches. Xeroform 4 x 4's and a bulky soft dressing was applied to the left upper extremity. Patient was then awakened from anesthesia and taken to PACU in stable condition. Patient tolerated procedure without complications. Disposition: Patient taken to PACU in stable condition recovering well. Dressing clean dry and intact. Patient will receive appropriate discharge instructions as well as pain medication postoperatively. Patient to follow-up with me in the office in 2 weeks. They understand they may be weightbearing as tolerated to the left hand. Patient should keep incision clean dry and intact. Patient understands if any questions or concerns may contact the office.
--- NOTE | 2025-03-01 10:44 | ANE.PACU2 ---
Inpatient post-anesthesia follow up: Airway intact: Yes Vital signs: Temperature 98 F Pulse Rate 51 Respiratory Rate 16 Blood Pressure 136/62 Pulse Oximetry 97 Oxygen Delivery Me thod Room Air Oxygen Flow Rate Fraction of Inspir ed Oxygen Hydration adequate: Yes Nausea and vomiting: No Pain level: 1 Mental status: Baseline
== END 2025-03-01 10:40 | disposition home or self-care (01) ==
PROVIDERS: Anesthesiology; PCP Nurse Practitioner Family; Visit Provider Student in an Organized Health Care Education/Training Program
PROC: (CPT 64721; principal; 2025-03-01 09:20)
DX: G56.02 Carpal tunnel syndrome, left upper limb (principal); E78.5 Hyperlipidemia, unspecified; Z79.4 Long term (current) use of insulin; E03.9 Hypothyroidism, unspecified; E10.9 Type 1 diabetes mellitus without complications; F41.8 Other specified anxiety disorders; Z96.41 Presence of insulin pump (external) (internal); F17.200 Nicotine dependence, unspecified, uncomplicated
CPT/HCPCS: 64721; 36416; 81025; 82962; J0131; J0690; J1885; J2250; J2704; J2795; J3010; J7030; J9999

== ENCOUNTER → 2025-04-26 13:54 | Outpatient (BNVA) | payer BC, MEDICAID, SELFPAY | PROVIDERS: PCP Nurse Practitioner Family; Visit Provider Nurse Practitioner Family | DX: M51.362 Other intervertebral disc degeneration, lumbar region with discogenic back pain and lower extremity pain (principal) | CPT/HCPCS: 72114 ==

== ENCOUNTER → 2025-05-03 10:19 | Outpatient (BNVA) | payer BC, MEDICAID, SELFPAY | PROVIDERS: PCP Nurse Practitioner Family; Visit Provider Internal Medicine | DX: E10.9 Type 1 diabetes mellitus without complications (principal) | CPT/HCPCS: 80053; 80061; 82043; 83036; 84439; 84443 ==

== ENCOUNTER 2025-05-13 11:38 | Outpatient (CLI) | payer BC, MEDICAID, SELFPAY ==
--- NOTE | 2025-05-13 11:45 | MR_ITS ---
WS: [id number] MRI LUMBAR SPINE NONCONTRAST TECHNIQUE: Sagittal T1, T2 and STIR imaging. Axial T1 and T2 imaging. CLINICAL INFORMATION: M54.50 - Low back pain, unspecified COMPARISON: None. FINDINGS: Mild lumbar curve. No acute compression. Disc bulging worse at L1-2 and L5-S1. L1-L2: Mild disc bulging. Mild RIGHT and no significant LEFT foraminal narrowing. L2-L3: Mild annular bulging. Mild facet arthropathy. Small bilateral foraminal protrusions. Tiny RIGHT annular tear. Mild LEFT greater than RIGHT foraminal narrowing L3-L4: Mild annular bulging. Mild facet arthropathy. Mild LEFT greater than RIGHT foraminal narrowing. L4-L5: Mild annular bulging. Mild facet arthropathy. Mild bilateral foraminal narrowing. L5-S1: Mild annular bulging. Mild LEFT foraminal narrowing. Spinal canal and RIGHT foramen are patent. Mild facet arthropathy. Visualized pelvic bony structures: Normal. Paravertebral soft tissues: Normal. Mild chronic compression with anterior wedging at T3 MR/MR lumbar spine wo con* [id number] IMPRESSION: 1. Mild lumbar curve. No acute compression. No high-grade central canal stenos is. 2. Small LEFT foraminal protrusion L3-4 with mild LEFT foraminal narrowing. 3. Annular bulge L4-5 with slight narrowing of the subarticular recess. Mild b ilateral foraminal narrowing. 4. Mild LEFT L5-S1 foraminal narrowing. 5. Moderate facet arthropathy L3-L4 and L4-L5.
== END 2025-05-13 11:39 | disposition home or self-care (01) ==
LOC: RAD 11:39
PROVIDERS: PCP Nurse Practitioner Family; Visit Provider Nurse Practitioner Family
DX: G89.29 Other chronic pain (principal); G11.11 Friedreich ataxia; M51.369 Other intervertebral disc degeneration, lumbar region without mention of lumbar back pain or lower extremity pain; M48.061 Spinal stenosis, lumbar region without neurogenic claudication; M51.360 Other intervertebral disc degeneration, lumbar region with discogenic back pain only; M47.896 Other spondylosis, lumbar region; M51.26 Other intervertebral disc displacement, lumbar region; M43.8X6 Other specified deforming dorsopathies, lumbar region
CPT/HCPCS: 72148

== ENCOUNTER → 2025-05-30 08:24 | Outpatient (BNVA) | payer BC, MEDICAID, SELFPAY | PROVIDERS: PCP Nurse Practitioner Family; Visit Provider Orthopaedic Surgery | DX: M51.362 Other intervertebral disc degeneration, lumbar region with discogenic back pain and lower extremity pain (principal) | CPT/HCPCS: 72110 ==